=== PATIENT | female | born 1990 | race Two or more races ===

== ENCOUNTER 2020-01-11 05:50 | Day surgery (SDC) | payer OTHER | END 2020-01-11 20:40 | disposition home or self-care (01) | LOC: CIR.AMB 05:50 | PROVIDERS: ATTEND Specialist | DX: C53.8 Malignant neoplasm of overlapping sites of cervix uteri (principal); Z20.828 Contact with and (suspected) exposure to other viral communicable diseases ==

== ENCOUNTER 2020-06-21 11:30 | Inpatient (IN) | payer OTHER ==
[~2020-06-21] VITALS: Ht 160 cm; Wt 59.0 kg
[2020-06-21] MEDS ORDERED: TENORMIN25 MG PO (15:00)
== END 2020-06-24 18:55 | disposition home or self-care (01) | DRG 741 ==
LOC: O/R 06-22 07:12 → SURH 06-22 11:30 → OB/GYN 06-22 23:48
PROVIDERS: ADMIT Specialist; ATTEND Specialist
PROC: 0UB77ZZ Excision of Bilateral Fallopian Tubes, Via Natural or Artificial Opening (ICD-10-PCS; 2020-06-22)
PROC: 0UT9FZZ Resection of Uterus, Via Natural or Artificial Opening With Percutaneous Endoscopic Assistance (ICD-10-PCS; principal; 2020-06-22 15:30)
DX: C54.1 Malignant neoplasm of endometrium (principal); N72 Inflammatory disease of cervix uteri; N80.0 Endometriosis of uterus; N83.8 Other noninflammatory disorders of ovary, fallopian tube and broad ligament; D26.1 Other benign neoplasm of corpus uteri; I10 Essential (primary) hypertension

== ENCOUNTER 2021-12-06 10:45 | Emergency (ER) | payer OTHER ==
[~2021-12-06] VITALS: Ht 160 cm; Wt 59.0 kg
[~2021-12-06 10:45] MED LIST: TENORMIN25 MG PO
[2021-12-06] MEDS ORDERED: DICLOFENAC SODI75 MG PO (16:33)
== END 2021-12-06 16:42 | disposition home or self-care (01) ==
LOC: ER 10:45
DX: R10.9 Unspecified abdominal pain (principal); Z88.8 Allergy status to other drugs, medicaments and biological substances

== ENCOUNTER 2022-01-19 00:39 | Emergency (ER) | payer OTHER ==
[~2022-01-19] VITALS: Ht 160 cm; Wt 61.2 kg
[~2022-01-19 00:39] MED LIST changes: +DICLOFENAC SODI75 MG PO
== END 2022-01-19 14:45 | disposition home or self-care (01) ==
LOC: ER 00:39
DX: R10.9 Unspecified abdominal pain (principal); N83.202 Unspecified ovarian cyst, left side; N83.201 Unspecified ovarian cyst, right side